=== PATIENT | male | born 2000 | race Caucasian/White ===

== ENCOUNTER 2023-08-09 06:54 | Emergency (ER) | payer SELFPAY ==
[2023-08-09 08:04] LABS: BASOPHILS ABSOLUTE AUTO 0.03 K/uL (0.00-0.20); BASOPHILS PERCENT AUTO 0.4 % (0.0-1.0); EOSINOPHILS ABSOLUTE AUTO 0.14 K/uL (0.00-0.45); HEMATOCRIT 42.4 % (42.0-52.0); HEMOGLOBIN 14.8 g/dL (14.0-18.0); LYMPHOCYTES ABSOLUTE AUTO 4.04 K/uL (1.00-4.80); MEAN CORPUSCULAR HEMOGLOBIN 30.8 pg (28.0-32.0); MEAN CORPUSCULAR HGB CONC 34.9 g/dL (32.0-36.0); MEAN CORPUSCULAR VOLUME 88.3 fL (83.0-99.0); MEAN PLATELET VOLUME 9.9 fL (9.4-12.4); MONOCYTES ABSOLUTE AUTO 0.48 K/uL (0.00-0.80); MONOCYTES PERCENT AUTO 6.9 % (0.0-8.0); NEUTROPHILS ABSOLUTE AUTO 2.28 K/uL (1.80-7.70); NEUTROPHILS PERCENT AUTO 32.7 % (41.0-71.0); PLATELET COUNT,PLT 285 K/uL (150-400); WHITE BLOOD CELL COUNT,WBC 6.97 K/uL (3.9-11.3)
[2023-08-09 08:17] LABS: A/G RATIO 1.1 (0.9-1.6); ALBUMIN 3.7 g/dL (3.4-5.0); BILIRUBIN TOTAL 0.3 mg/dL (0.2-1.0); CALCIUM 8.5 mg/dL (8.5-10.1); CARBON DIOXIDE,CO2 27.9 mmol/L (21.0-32.0); CREATININE 1.1 mg/dL (0.8-1.3); EST CRCL DRUG DOSING (CG) 110.29 mL/min; POTASSIUM,K 4.1 mmol/L (3.5-5.1); PROTEIN TOTAL,TP 7.2 g/dL (6.4-8.2)
== END 2023-08-09 08:42 | disposition home or self-care (01) ==
LOC: MW.ED 06:54
DX: M79.602 Pain in left arm (principal); R20.2 Paresthesia of skin; I10 Essential (primary) hypertension; Z88.0 Allergy status to penicillin; Z88.8 Allergy status to other drugs, medicaments and biological substances; Z76.0 Encounter for issue of repeat prescription; Z75.8 Other problems related to medical facilities and other health care
CPT/HCPCS: 36415; 80053; 85025; 99283; 99284

== ENCOUNTER 2023-08-25 22:07 | Emergency (ER) | payer SELFPAY ==
[2023-08-25] MEDS: Aspirin 81 MG Tab.Chew PO ONE (22:23)
[2023-08-25] MEDS: Ondansetron 4 MG/2 ML SDV IVPUSH ONE (22:23)
[2023-08-25] MEDS: LORazepam 1 MG Tab PO ONE (22:23)
[2023-08-25 22:24] LABS: HEMATOCRIT 41.9 % (42.0-52.0); MEAN CORPUSCULAR HEMOGLOBIN 31.4 pg (28.0-32.0); MEAN CORPUSCULAR HGB CONC 35.8 g/dL (32.0-36.0); MEAN CORPUSCULAR VOLUME 87.7 fL (83.0-99.0); MEAN PLATELET VOLUME 10.3 fL (9.4-12.4); PLATELET COUNT,PLT 304 K/uL (150-400); RED BLOOD CELL COUNT 4.78 M/uL (4.52-5.90); WHITE BLOOD CELL COUNT,WBC 8.88 K/uL (3.9-11.3)
[2023-08-25 22:51] LABS: AMPHETAMINES SCREEN, URINE NEGATIVE (CUTOFF=500); BARBITURATE SCREEN,URINE NEGATIVE (CUTOFF=200); BENZODIAZEPINES SCREEN,URINE NEGATIVE (CUTOFF=150); BUPRENORPHINE SCREEN,URINE NEGATIVE (CUTOFF=10); METHADONE SCREEN, URINE NEGATIVE (CUTOFF=200); METHAMPHETAMINES SCREEN, URINE NEGATIVE (CUTOFF=500); OXYCODONE SCREEN,URINE NEGATIVE (CUT0FF=100); PCP SCREEN,URINE NEGATIVE (CUTOFF=25); THC SCREEN,URINE 20 NG/ML NEGATIVE (CUTOFF=50)
[2023-08-25 22:51] LABS: A/G RATIO 1.2 (0.9-1.6); ALBUMIN 4.3 g/dL (3.4-5.0); BILIRUBIN TOTAL 0.2 mg/dL (0.2-1.0); CALCIUM 9.6 mg/dL (8.5-10.1); CARBON DIOXIDE,CO2 24.7 mmol/L (21.0-32.0); CREATININE 1.1 mg/dL (0.8-1.3); EST CRCL DRUG DOSING (CG) 103.55 mL/min; POTASSIUM,K 3.3 mmol/L (3.5-5.1); PROTEIN TOTAL,TP 7.8 g/dL (6.4-8.2)
[2023-08-25 23:06] LABS: EOSINOPHILS ABSOLUTE MAN 0.09 K/uL (0.00-0.45); EOSINOPHILS PERCENT MAN 1 % (0-6); LYMPHOCYTES ABSOLUTE MAN 5.15 K/uL (1.00-4.80); LYMPHOCYTES PERCENT MAN 58 % (24-44); MONOCYTES ABSOLUTE MAN 0.62 K/uL (0.00-0.80); MONOCYTES PERCENT MAN 7 % (0-8); SEG NEUTROPHILS ABSOLUTE MAN 3.02 K/uL (1.80-7.70); SEG NEUTROPHILS PERCENT MAN 34 % (41-71)
== END 2023-08-25 23:29 | disposition home or self-care (01) ==
LOC: MW.ED 22:07
DX: R07.9 Chest pain, unspecified (principal); I10 Essential (primary) hypertension; F17.210 Nicotine dependence, cigarettes, uncomplicated; Z75.8 Other problems related to medical facilities and other health care; Z88.0 Allergy status to penicillin
CPT/HCPCS: 36415; 71045; 80053; 80305; 84484; 85025; 85379; 93005; 96374; 99285; A9270; J2405; 93010; 99284

== ENCOUNTER 2023-09-25 09:08 | Emergency (ER) | payer SELFPAY ==
[2023-09-26 08:01] LABS: BASOPHILS ABSOLUTE AUTO 0.04 K/uL (0.00-0.20); BASOPHILS PERCENT AUTO 0.9 % (0.0-1.0); EOSINOPHILS ABSOLUTE AUTO 0.04 K/uL (0.00-0.45); EOSINOPHILS PERCENT AUTO 0.9 % (0.0-6.0); HEMATOCRIT 41.6 % (42.0-52.0); HEMOGLOBIN 14.4 g/dL (14.0-18.0); IMMATURE GRAN ABSOLUTE AUTO 0.01 K/uL (0.00-0.05); IMMATURE GRAN PERCENT AUTO 0.2 % (0.0-0.4); LYMPHOCYTES ABSOLUTE AUTO 1.53 K/uL (1.00-4.80); LYMPHOCYTES PERCENT AUTO 33.4 % (24.0-44.0); MEAN CORPUSCULAR HEMOGLOBIN 30.6 pg (28.0-32.0); MEAN CORPUSCULAR HGB CONC 34.6 g/dL (32.0-36.0); MEAN CORPUSCULAR VOLUME 88.3 fL (83.0-99.0); MEAN PLATELET VOLUME 10.2 fL (9.4-12.4); MONOCYTES ABSOLUTE AUTO 0.37 K/uL (0.00-0.80); MONOCYTES PERCENT AUTO 8.1 % (0.0-8.0); NEUTROPHILS ABSOLUTE AUTO 2.59 K/uL (1.80-7.70); NEUTROPHILS PERCENT AUTO 56.5 % (41.0-71.0); PLATELET COUNT,PLT 259 K/uL (150-400); RED BLOOD CELL COUNT 4.71 M/uL (4.52-5.90); WHITE BLOOD CELL COUNT,WBC 4.58 K/uL (3.9-11.3)
[2023-09-26 13:14] LABS: A/G RATIO 1.3 (0.9-1.6); ALANINE AMINOTRANSFERASE,ALT 33 IU/L (14-63); ALBUMIN 3.9 g/dL (3.4-5.0); ALKALINE PHOSPHATASE 78 U/L (46-116); ASPARTATE AMNIOTRANSFERASE,AST 18 IU/L (15-37); BILIRUBIN TOTAL 0.5 mg/dL (0.2-1.0); BLOOD UREA NITROGEN,BUN 16 mg/dL (7.0-18.0); CALCIUM 8.8 mg/dL (8.5-10.1); CARBON DIOXIDE,CO2 28.1 mmol/L (21.0-32.0); CHLORIDE,CL 102 mmol/L (98-107); GLUCOSE RANDOM 93 mg/dL (74-106); POTASSIUM,K 4.1 mmol/L (3.5-5.1); SODIUM,NA 138 mmol/L (136-148); TSH ULTRASENSITIVE 0.89 uIU/mL (0.36-3.74)
[2023-09-26 13:18] LABS: ESTIMATED GFR 108 mL/min (>60)
== END 2023-09-25 12:55 | disposition home or self-care (01) ==
LOC: MW.ED 09:08
DX: R07.89 Other chest pain (principal); I10 Essential (primary) hypertension; Z88.0 Allergy status to penicillin
CPT/HCPCS: 36415; 71046; 71046-26; 80053; 84443; 84484; 85025; 85379; 93005; 99285

== ENCOUNTER 2024-01-04 12:47 | Emergency (ER) | payer OTHER ==
[2024-01-04] MEDS: Aspirin 81 MG Tab.Chew PO ONE (14:28)
[2024-01-04] MEDS: Lidocaine 4% 1 each Patch TOP STA (14:28)
[2024-01-04] MEDS: Sodium Chloride 0.9% 1,000 ML IV ONE (14:29)
[2024-01-04] MEDS: Ketorolac 30 MG/ML SDV IVPUSH ONE (14:29)
[2024-01-04 14:37] LABS: BASOPHILS ABSOLUTE AUTO 0.03 K/uL (0.00-0.20); BASOPHILS PERCENT AUTO 0.5 % (0.0-1.0); EOSINOPHILS ABSOLUTE AUTO 0.08 K/uL (0.00-0.45); EOSINOPHILS PERCENT AUTO 1.3 % (0.0-6.0); HEMATOCRIT 40.6 % (42.0-52.0); HEMOGLOBIN 14.2 g/dL (14.0-18.0); IMMATURE GRAN ABSOLUTE AUTO 0.01 K/uL (0.00-0.05); IMMATURE GRAN PERCENT AUTO 0.2 % (0.0-0.4); LYMPHOCYTES ABSOLUTE AUTO 1.99 K/uL (1.00-4.80); LYMPHOCYTES PERCENT AUTO 32.5 % (24.0-44.0); MEAN CORPUSCULAR HEMOGLOBIN 30.9 pg (28.0-32.0); MEAN CORPUSCULAR VOLUME 88.5 fL (83.0-99.0); MONOCYTES ABSOLUTE AUTO 0.52 K/uL (0.00-0.80); MONOCYTES PERCENT AUTO 8.5 % (0.0-8.0); NEUTROPHILS ABSOLUTE AUTO 3.49 K/uL (1.80-7.70); PLATELET COUNT,PLT 251 K/uL (150-400); RED BLOOD CELL COUNT 4.59 M/uL (4.52-5.90); WHITE BLOOD CELL COUNT,WBC 6.12 K/uL (3.9-11.3)
[2024-01-04 15:04] LABS: A/G RATIO 1.2 (0.9-1.6); ALANINE AMINOTRANSFERASE,ALT 27 IU/L (14-63); ALKALINE PHOSPHATASE 86 U/L (46-116); ASPARTATE AMNIOTRANSFERASE,AST 9 IU/L (15-37); BILIRUBIN TOTAL 0.3 mg/dL (0.2-1.0); BLOOD UREA NITROGEN,BUN 24 mg/dL (7.0-18.0); CARBON DIOXIDE,CO2 29.7 mmol/L (21.0-32.0); CHLORIDE,CL 103 mmol/L (98-107); CREATININE 0.9 mg/dL (0.8-1.3); EST CRCL DRUG DOSING (CG) 130.68 mL/min; GLUCOSE RANDOM 110 mg/dL (74-106); LIPASE 43 U/L (16-77); POTASSIUM,K 4.2 mmol/L (3.5-5.1); PROTEIN TOTAL,TP 7.3 g/dL (6.4-8.2); SODIUM,NA 139 mmol/L (136-148)
[2024-01-04 15:05] LABS: ESTIMATED GFR 122 mL/min (>60)
[2024-01-04 15:15] LABS: CORONAVIRUS COVID-19 NAA NEGATIVE (NEGATIVE); INFLUENZA A NAA NEGATIVE (NEGATIVE); INFLUENZA B NAA NEGATIVE (NEGATIVE); RESPIRATORY SYNCYTIAL VIR NAA NEGATIVE (NEGATIVE)
== END 2024-01-04 16:56 | disposition home or self-care (01) ==
LOC: MW.ED 12:47
DX: R07.9 Chest pain, unspecified (principal); I10 Essential (primary) hypertension; K21.9 Gastro-esophageal reflux disease without esophagitis; Z88.0 Allergy status to penicillin; Z79.899 Other long term (current) drug therapy; Z75.8 Other problems related to medical facilities and other health care
CPT/HCPCS: 0241U; 36415; 71045; 80053; 83690; 84484; 85025; 85379; 96361; 96374; 99285; A9270; J1885; J7030; 93010

== ENCOUNTER 2024-04-30 22:44 | Emergency (ER) | payer SELFPAY ==
[2024-05-01 00:42] LABS: BASOPHILS ABSOLUTE AUTO 0.03 K/uL (0.00-0.20); BASOPHILS PERCENT AUTO 0.5 % (0.0-1.0); EOSINOPHILS ABSOLUTE AUTO 0.13 K/uL (0.00-0.45); EOSINOPHILS PERCENT AUTO 2.2 % (0.0-6.0); HEMATOCRIT 41.1 % (42.0-52.0); HEMOGLOBIN 14.4 g/dL (14.0-18.0); IMMATURE GRAN ABSOLUTE AUTO 0.01 K/uL (0.00-0.05); IMMATURE GRAN PERCENT AUTO 0.2 % (0.0-0.4); LYMPHOCYTES ABSOLUTE AUTO 3.33 K/uL (1.00-4.80); LYMPHOCYTES PERCENT AUTO 55.4 % (24.0-44.0); MEAN CORPUSCULAR HEMOGLOBIN 30.3 pg (28.0-32.0); MEAN CORPUSCULAR VOLUME 86.5 fL (83.0-99.0); MEAN PLATELET VOLUME 9.8 fL (9.4-12.4); MONOCYTES PERCENT AUTO 8.3 % (0.0-8.0); NEUTROPHILS ABSOLUTE AUTO 2.01 K/uL (1.80-7.70); NEUTROPHILS PERCENT AUTO 33.4 % (41.0-71.0); PLATELET COUNT,PLT 270 K/uL (150-400); RED BLOOD CELL COUNT 4.75 M/uL (4.52-5.90); WHITE BLOOD CELL COUNT,WBC 6.01 K/uL (3.9-11.3)
[2024-05-01 01:14] LABS: CALCIUM 9.1 mg/dL (8.5-10.1); CARBON DIOXIDE,CO2 25.8 mmol/L (21.0-32.0); CREATININE 0.8 mg/dL (0.8-1.3); EST CRCL DRUG DOSING (CG) 145.75 mL/min; POTASSIUM,K 4.3 mmol/L (3.5-5.1)
== END 2024-05-01 01:45 | disposition home or self-care (01) ==
LOC: MW.ED 22:44
DX: I10 Essential (primary) hypertension (principal); Z79.899 Other long term (current) drug therapy; Z88.0 Allergy status to penicillin
CPT/HCPCS: 36415; 80048; 84484; 85025; 93005; 99285

== ENCOUNTER 2024-06-08 20:56 | Emergency (ER) | payer SELFPAY ==
[2024-06-09] MEDS: Sulfamethoxazole/Trimethoprim 800-160 MG Tab PO ONE (00:21)
== END 2024-06-09 00:44 | disposition home or self-care (01) ==
LOC: MW.ED 20:56
DX: R21 Rash and other nonspecific skin eruption (principal); I10 Essential (primary) hypertension; F17.210 Nicotine dependence, cigarettes, uncomplicated; Z75.8 Other problems related to medical facilities and other health care; Z88.0 Allergy status to penicillin; Z79.899 Other long term (current) drug therapy
CPT/HCPCS: 87075; 99283; A9270

== ENCOUNTER 2024-07-11 19:51 | Emergency (ER) | payer SELFPAY ==
[2024-07-11 20:27] LABS: BASOPHILS ABSOLUTE AUTO 0.03 K/uL (0.00-0.20); BASOPHILS PERCENT AUTO 0.5 % (0.0-1.0); EOSINOPHILS ABSOLUTE AUTO 0.07 K/uL (0.00-0.45); EOSINOPHILS PERCENT AUTO 1.2 % (0.0-6.0); HEMATOCRIT 40.5 % (42.0-52.0); IMMATURE GRAN ABSOLUTE AUTO 0.01 K/uL (0.00-0.05); IMMATURE GRAN PERCENT AUTO 0.2 % (0.0-0.4); LYMPHOCYTES ABSOLUTE AUTO 3.01 K/uL (1.00-4.80); LYMPHOCYTES PERCENT AUTO 50.9 % (24.0-44.0); MEAN CORPUSCULAR HEMOGLOBIN 30.3 pg (28.0-32.0); MEAN CORPUSCULAR HGB CONC 34.6 g/dL (32.0-36.0); MEAN CORPUSCULAR VOLUME 87.7 fL (83.0-99.0); MONOCYTES PERCENT AUTO 6.8 % (0.0-8.0); NEUTROPHILS ABSOLUTE AUTO 2.39 K/uL (1.80-7.70); NEUTROPHILS PERCENT AUTO 40.4 % (41.0-71.0); PLATELET COUNT,PLT 287 K/uL (150-400); RED BLOOD CELL COUNT 4.62 M/uL (4.52-5.90); WHITE BLOOD CELL COUNT,WBC 5.91 K/uL (3.9-11.3)
[2024-07-11] MEDS: Lisinopril 10 MG Tab PO ONE (20:41)
[2024-07-11 20:56] LABS: A/G RATIO 1.3 (0.9-1.6); BILIRUBIN TOTAL 0.3 mg/dL (0.2-1.0); CALCIUM 8.8 mg/dL (8.5-10.1); CARBON DIOXIDE,CO2 28.5 mmol/L (21.0-32.0); CREATININE 1.1 mg/dL (0.8-1.3); EST CRCL DRUG DOSING (CG) 102.66 mL/min; MAGNESIUM 1.8 mg/dL (1.8-2.4); POTASSIUM,K 3.9 mmol/L (3.5-5.1); PROTEIN TOTAL,TP 7.1 g/dL (6.4-8.2)
== END 2024-07-11 23:04 | disposition home or self-care (01) ==
LOC: MW.ED 19:51
DX: I11.9 Hypertensive heart disease without heart failure (principal); Z75.3 Unavailability and inaccessibility of health-care facilities; Z88.0 Allergy status to penicillin; Z79.899 Other long term (current) drug therapy
CPT/HCPCS: 36415; 71045; 80053; 83690; 83735; 83880; 84484; 85025; 93005; 99285; A9270; 93010; 99283

== ENCOUNTER 2024-07-15 00:37 | Emergency (ER) | payer SELFPAY ==
[2024-07-15 01:33] LABS: BASOPHILS ABSOLUTE AUTO 0.03 K/uL (0.00-0.20); BASOPHILS PERCENT AUTO 0.4 % (0.0-1.0); EOSINOPHILS PERCENT AUTO 1.4 % (0.0-6.0); HEMATOCRIT 42.3 % (42.0-52.0); HEMOGLOBIN 14.8 g/dL (14.0-18.0); IMMATURE GRAN ABSOLUTE AUTO 0.01 K/uL (0.00-0.05); IMMATURE GRAN PERCENT AUTO 0.1 % (0.0-0.4); LYMPHOCYTES ABSOLUTE AUTO 4.13 K/uL (1.00-4.80); LYMPHOCYTES PERCENT AUTO 58.6 % (24.0-44.0); MEAN CORPUSCULAR HEMOGLOBIN 30.8 pg (28.0-32.0); MEAN CORPUSCULAR VOLUME 87.9 fL (83.0-99.0); MEAN PLATELET VOLUME 10.2 fL (9.4-12.4); MONOCYTES ABSOLUTE AUTO 0.62 K/uL (0.00-0.80); MONOCYTES PERCENT AUTO 8.8 % (0.0-8.0); NEUTROPHILS ABSOLUTE AUTO 2.16 K/uL (1.80-7.70); NEUTROPHILS PERCENT AUTO 30.7 % (41.0-71.0); PLATELET COUNT,PLT 287 K/uL (150-400); RED BLOOD CELL COUNT 4.81 M/uL (4.52-5.90); WHITE BLOOD CELL COUNT,WBC 7.05 K/uL (3.9-11.3)
[2024-07-15 01:49] LABS: A/G RATIO 1.3 (0.9-1.6); ALBUMIN 4.1 g/dL (3.4-5.0); BILIRUBIN TOTAL 0.2 mg/dL (0.2-1.0); CALCIUM 8.7 mg/dL (8.5-10.1); CARBON DIOXIDE,CO2 28.2 mmol/L (21.0-32.0); CREATININE 1.1 mg/dL (0.8-1.3); POTASSIUM,K 4.1 mmol/L (3.5-5.1); PROTEIN TOTAL,TP 7.3 g/dL (6.4-8.2)
== END 2024-07-15 02:58 | disposition home or self-care (01) ==
LOC: MW.ED 00:37
DX: R07.89 Other chest pain (principal); I10 Essential (primary) hypertension; Z79.899 Other long term (current) drug therapy
CPT/HCPCS: 36415; 80053; 84484; 85025; 93005; 93010; 99283; 99285

== ENCOUNTER 2024-07-27 01:32 | Emergency (ER) | payer SELFPAY ==
[2024-07-27 02:34] LABS: CALCIUM 8.7 mg/dL (8.5-10.1); CARBON DIOXIDE,CO2 26.6 mmol/L (21.0-32.0); CREATININE 0.9 mg/dL (0.8-1.3); EST CRCL DRUG DOSING (CG) 125.47 mL/min; POTASSIUM,K 3.7 mmol/L (3.5-5.1)
== END 2024-07-27 03:00 | disposition home or self-care (01) ==
LOC: MW.ED 01:32
DX: I10 Essential (primary) hypertension (principal); Z88.0 Allergy status to penicillin; Z79.899 Other long term (current) drug therapy
CPT/HCPCS: 36415; 80048; 93005; 99283

== ENCOUNTER 2024-08-14 22:25 | Emergency (ER) | payer SELFPAY ==
[2024-08-14] MEDS: Ketorolac 30 MG/ML SDV IVPUSH ONE (22:50)
[2024-08-14 23:01] LABS: BASOPHILS ABSOLUTE AUTO 0.03 K/uL (0.00-0.20); BASOPHILS PERCENT AUTO 0.4 % (0.0-1.0); EOSINOPHILS ABSOLUTE AUTO 0.12 K/uL (0.00-0.45); EOSINOPHILS PERCENT AUTO 1.5 % (0.0-6.0); HEMATOCRIT 43.3 % (42.0-52.0); HEMOGLOBIN 14.9 g/dL (14.0-18.0); IMMATURE GRAN ABSOLUTE AUTO 0.02 K/uL (0.00-0.05); IMMATURE GRAN PERCENT AUTO 0.2 % (0.0-0.4); LYMPHOCYTES ABSOLUTE AUTO 2.51 K/uL (1.00-4.80); LYMPHOCYTES PERCENT AUTO 30.6 % (24.0-44.0); MEAN CORPUSCULAR HEMOGLOBIN 29.9 pg (28.0-32.0); MEAN CORPUSCULAR HGB CONC 34.4 g/dL (32.0-36.0); MEAN CORPUSCULAR VOLUME 86.9 fL (83.0-99.0); MEAN PLATELET VOLUME 10.4 fL (9.4-12.4); MONOCYTES PERCENT AUTO 9.7 % (0.0-8.0); NEUTROPHILS ABSOLUTE AUTO 4.73 K/uL (1.80-7.70); NEUTROPHILS PERCENT AUTO 57.6 % (41.0-71.0); PLATELET COUNT,PLT 280 K/uL (150-400); RED BLOOD CELL COUNT 4.98 M/uL (4.52-5.90); WHITE BLOOD CELL COUNT,WBC 8.21 K/uL (3.9-11.3)
[2024-08-14 23:15] LABS: A/G RATIO 1.2 (0.9-1.6); ALBUMIN 4.3 g/dL (3.4-5.0); BILIRUBIN TOTAL 0.4 mg/dL (0.2-1.0); CALCIUM 8.7 mg/dL (8.5-10.1); CARBON DIOXIDE,CO2 28.3 mmol/L (21.0-32.0); CREATININE 1.2 mg/dL (0.8-1.3); EST CRCL DRUG DOSING (CG) 94.1 mL/min; POTASSIUM,K 3.8 mmol/L (3.5-5.1); PROTEIN TOTAL,TP 7.9 g/dL (6.4-8.2)
[2024-08-15] MEDS: Acetaminophen 325 MG Tab PO ONE (00:25)
[2024-08-15] MEDS: Sucralfate Suspension 1 GM/10 ML Cup PO ONE (00:26)
== END 2024-08-15 01:47 | disposition home or self-care (01) ==
LOC: MW.ED 22:25
DX: R07.89 Other chest pain (principal); I10 Essential (primary) hypertension; K21.9 Gastro-esophageal reflux disease without esophagitis; Z88.0 Allergy status to penicillin; Z79.899 Other long term (current) drug therapy
CPT/HCPCS: 36415; 70450; 71046; 80053; 84484; 85025; 93005; 96374; 99285; A9270; J1885; 93010; 99284